=== PATIENT | male | born 1950 | race Caucasian/White ===

== ENCOUNTER 2017-02-25 18:47 | Emergency (ER) | payer MEDICARE, MEDICAID ==
[~2017-02-25] VITALS: Ht 182.9 cm; Wt 89.8 kg
[~2017-02-25 18:47] MED LIST: ACET325T14 PO; HYDR25TA6 PO; OXYC5TAB3 PO; SENN1TAB7 PO; SULF1TAB3 PO
[2017-02-25 20:13] VITALS: BP 126/81
== END 2017-02-25 20:15 | disposition home or self-care (01) ==
LOC: ED 20:09
DX: L02.211 Cutaneous abscess of abdominal wall (principal)
CPT/HCPCS: 99282

== ENCOUNTER 2018-06-10 00:44 | Inpatient (IN) | payer MEDICARE, MEDICAID ==
[~2018-06-10] VITALS: Ht 182.9 cm; Wt 86.2 kg
[~2018-06-10 00:44] MED LIST changes: +SULF-169 PO; -SULF1TAB3 PO
[2018-06-10] MEDS ORDERED: ONDANSETRON 2MG/ML, 2ML ONE (01:29)
[2018-06-10 01:30] LABS: BASOPHILS # (AUTO) 0.05 x10^3/uL (0-0.1); BASOPHILS % (AUTO) 0 % (0-1); EOSINOPHILS # (AUTO) 0.03 x10^3/uL (0-0.4); EOSINOPHILS % (AUTO) 0 % (1-7); LYMPHOCYTES # (AUTO) 1.19 x10^3/uL (1-3.4); LYMPHOCYTES % (AUTO) 8 % (22-44); MD NO; MEAN CORPUSCULAR HEMOGLOBIN 27.9 pg (27.5-34.5); MEAN CORPUSCULAR HGB CONC 32.8 g/dL (33.2-36.2); MEAN CORPUSCULAR VOLUME 85.1 fL (81-97); MONOCYTES # (AUTO) 1.24 x10^3/uL (0.2-0.8); MONOCYTES % (AUTO) 8 % (2-9); NEUTROPHILS # (AUTO) 13.23 x10^3/uL (1.8-6.8); NEUTROPHILS % (AUTO) 84 % (42-75); PLATELET COUNT 341 x10^3/uL (130-400); RED BLOOD COUNT 4.23 x10^6/uL (4.38-5.82); RED CELL DISTRIBUTION WIDTH 14.7 % (9.4-14.8)
[2018-06-10] MEDS ORDERED: MORPHINE SULFATE 4 MG/ML, 1ML IVPush PRN (01:30)
[2018-06-10] MEDS ORDERED: AMPICILLIN/SULBACTAM 3 GM in SODIUM CHLORIDE 0.9% 100 ML IV ONE (01:30)
[2018-06-10] MEDS ORDERED: MORPHINE SULFATE 4 MG/ML, 1ML ONE (01:30)
[2018-06-10] MEDS ORDERED: ACETAMINOPHEN 500 MG TABLET ONE (01:30)
[2018-06-10] MEDS ORDERED: VANCOMYCIN PER PHARMACY IV ONE (01:30)
[2018-06-10] MEDS ORDERED: LIDOCAINE 1%, 10ML INFIL ONE (01:30)
[2018-06-10] MEDS ORDERED: SODIUM CHLORIDE 0.9% 1,000ML IVBOLUS ONE (01:30)
[2018-06-10] MEDS ORDERED: LIDOCAINE-MPF 2% ,5ML ONE ×3 (01:33→02:58)
[2018-06-10 01:41] LABS: ALANINE AMINOTRANSFERASE 27 U/L (12-78); ALBUMIN 2.9 g/dL (3.4-5.0); ANION GAP 8 mmol/L (5-15); CALCIUM 8.2 mg/dL (8.5-10.1); CHLORIDE 99 mmol/L (98-107); CREATININE 0.72 mg/dL (0.7-1.3)
[2018-06-10 01:42] LABS: INTERNATIONAL NORMALIZED RATIO 1.03 (0.93-1.1); PROTHROMBIN TIME 10.7 Seconds (9.6-11.5)
[2018-06-10 01:43] LABS: ALKALINE PHOSPHATASE 285 U/L (45-117); BILIRUBIN,TOTAL 0.7 mg/dL (0.2-1.0); TOTAL PROTEIN 7.1 g/dL (6.4-8.2)
[2018-06-10] MEDS ORDERED: OMNIPAQUE 350 MG/ML, 100ML BOTTLE ONE (01:57)
[2018-06-10] MEDS ORDERED: SODIUM CHLORIDE 0.9%, 500ML IVBOLUS ONE (02:00)
[2018-06-10] MEDS ORDERED: ONDANSETRON 2MG/ML, 2ML IVPush ONE (02:00)
[2018-06-10] MEDS ORDERED: ACETAMINOPHEN 500 MG TABLET PO ONE (02:00)
[2018-06-10] MEDS ORDERED: ACETAMINOPHEN 325 MG TABLET PO PRN (02:30)
[2018-06-10] MEDS ORDERED: NICOTINE 7 MG/24 HR PATCH.TD24 TD SCH (02:30)
[2018-06-10] MEDS ORDERED: ONDANSETRON ODT 4 MG PO PRN (02:30)
[2018-06-10 02:44] VITALS: BP 126/73
[2018-06-10 03:23] LABS: AMPHETAMINE SCREEN, URINE Negative (Negative); BARBITURATE SCREEN, URINE Negative (Negative); BENZODIAZEPINE SCREEN, URINE Negative (Negative); CANNABINOID SCREEN, URINE Negative (Negative); COCAINE SCREEN, URINE Negative (Negative); METHADONE SCREEN, URINE Negative (Negative); OPIATE SCREEN, URINE Positive (Negative)
[2018-06-10 03:31] LABS: CULTURE INDICATED? YES; MICROSCOPIC INDICATED
[2018-06-10 03:40] VITALS: BP 126/73
[2018-06-10] MEDS ORDERED: VANCOMYCIN 1,300 MG in SODIUM CHLORIDE 0.9% 250 ML IVPB SCH (04:00)
[2018-06-10] MEDS ORDERED: VANCOMYCIN PER PHARMACY MC PRN (04:00)
[2018-06-10] MEDS ORDERED: SODIUM CHLORIDE 0.9% 1,000 ML IV ONE (04:00)
[2018-06-10] MEDS ORDERED: PHARMACOKINETIC MONITORING MC PRN (04:00)
[2018-06-10 06:45] VITALS: BP 124/70
[2018-06-10] MEDS ORDERED: AMPICILLIN/SULBACTAM 3 GM in SODIUM CHLORIDE 0.9% 100 ML IV SCH (07:00)
== END 2018-06-10 11:00 | disposition left against medical advice (07) | DRG 854 ==
LOC: ED 01:25 → INTOOBSV 01:53 → OBSVTOIN 01:53 → EDIP 01:53 → 3NE 02:32
PROVIDERS: ADMIT Internal Medicine; ATTEND Internal Medicine
PROC: 0J990ZZ Drainage of Buttock Subcutaneous Tissue and Fascia, Open Approach (ICD-10-PCS; principal; 2018-06-10)
PROC: 0W9F0ZZ Drainage of Abdominal Wall, Open Approach (ICD-10-PCS; 2018-06-10)
DX: A41.9 Sepsis, unspecified organism (principal); L02.31 Cutaneous abscess of buttock; E44.0 Moderate protein-calorie malnutrition; E87.1 Hypo-osmolality and hyponatremia; L02.211 Cutaneous abscess of abdominal wall; L03.317 Cellulitis of buttock; D64.9 Anemia, unspecified; Z68.25 Body mass index [BMI] 25.0-25.9, adult; F17.210 Nicotine dependence, cigarettes, uncomplicated; I10 Essential (primary) hypertension; I87.2 Venous insufficiency (chronic) (peripheral); Z83.3 Family history of diabetes mellitus; Z82.49 Family history of ischemic heart disease and other diseases of the circulatory system
CPT/HCPCS: 10061; 36415; 72193; 80053; 80202; 80307; 81001; 83605; 85025; 85610; 87040; 87070; 87077; 87086; 87186; 87205; 96374; 96375; J0295; J2405; J3370; Q9967; J7030; J7050

== ENCOUNTER 2020-09-03 20:20 | Emergency (ER) | payer MEDICARE, MEDICAID ==
[~2020-09-03 20:20] MED LIST changes: +SENN-177 PO; -SENN1TAB7 PO
[2020-09-03] MEDS ORDERED: LIDOCAINE 1%-EPI 1:100K, 50ML INFIL ONE (20:30)
[2020-09-03] MEDS ORDERED: LIDOCAINE-MPF 1%, 5ML ONE ×2 (20:31→21:43)
--- NOTE | 2020-09-03 20:50 | NUR ---
LAC TO RIGHT FOREHEAD JULIENNE 2 INCHES S/P TRIP AND FALL ON CONCRET NO LOC
[2020-09-03] MEDS ORDERED: NEOSPORIN OINT. PKT 1 PACKET ONE (21:58)
--- NOTE | 2020-09-03 22:10 | NUR ---
NEOSPORIN PLACED ON LAC AND DRESSING APPLIED
[2020-09-03 22:12] VITALS: BP 130/70
== END 2020-09-03 22:14 | disposition home or self-care (01) ==
LOC: ED 20:50
DX: S01.81XA Laceration without foreign body of other part of head, initial encounter (principal); S09.90XA Unspecified injury of head, initial encounter; M54.2 Cervicalgia; G89.29 Other chronic pain; I10 Essential (primary) hypertension; W01.0XXA Fall on same level from slipping, tripping and stumbling without subsequent striking against object, initial encounter; Y93.89 Activity, other specified; Y92.410 Unspecified street and highway as the place of occurrence of the external cause; Y99.8 Other external cause status
CPT/HCPCS: 12052; 70450; 70486; 72125; 99285